=== PATIENT | female | born 2000 | race Caucasian/White ===

== ENCOUNTER 2021-10-19 22:07 | Observation (INO) | payer MEDICAID, SELFPAY ==
[2021-10-19 23:07] VITALS: BP 132/71; PULSE 93; RESP 17; TEMP 36.4; O2SAT 96; BMI 19.8
[2021-10-20] VITALS (18 sets, daily range): BP systolic 96–141; BP diastolic 51–99; PULSE 68–114; RESP 16–24; TEMP 36.6–37.2; O2SAT 18–100; BMI 19.8
--- NOTE | 2021-10-20 01:07 | USR_ITS ---
PROCEDURE INFORMATION: Exam: US First Trimester, Transabdominal and US , Transvaginal Exam date and time: 10/20/2021 2:22 AM Age: 21 years old Clinical indication: Other: Pelvic pain / vaginal bleeding; Gestational age or lmp: Unknown (patient had miscarriage 3 months prior); Additional info: Vag bleeding, pelvic pain TECHNIQUE: Imaging protocol: Real-time transabdominal obstetrical ultrasound of the maternal pelvis and a first trimester , less than 14 weeks 0 days, with image documentation. Transvaginal imaging was used for better evaluation of the fetus, adnexa, and/or cervix. COMPARISON: No relevant prior studies available. FINDINGS: Gestation: No intrauterine gestational sac is seen. Embryonic/ heart rate: N/A Extra-embryonic membranes/Placenta: N/A Amniotic fluid: N/A BIOMETRY: Gestational age (AUA): N/A MATERNAL: Uterus: The uterus measures 7.3 x 6.1 x 4.8 cm. The endometrium appears thickened with a multi-cystic appearance. Cervix: Unremarkable. Right ovary/adnexa: The right ovary measures 1.8 x 1.7 x 1.3 cm. Normal vascularity. No mass. Left ovary/adnexa: The left ovary measures 2.3 x 1.5 x 2.7 cm. Normal vascularity. No mass. Intraperitoneal space: No intraperitoneal free fluid. US/US OB <= 14 weeks fetus [id number] IMPRESSION: Thickened, multi-cystic appearance of the endometrium raises concern for a molar .
[2021-10-20] MEDS: sodium chloride 0.9% 1,000 ML 999 ML IV (02:16)
[2021-10-20 02:25] LABS: Basophils # 0.1 10^3/uL (0.0-0.1); Basophils % 0.5 %; Eosinophils # 0.1 10^3/uL (0.0-0.8); Eosinophils % 0.8 %; Hemoglobin 13.7 g/dL (11.5-15.3); Lymphocytes # 2.7 10^3/uL (1.5-6.5); Lymphocytes % 23.1 %; Mean Corpuscular HGB Conc 34.3 g/dL (30.0-36.0); Mean Corpuscular Hemoglobin 28.8 pg (28.0-34.0); Mean Corpuscular Volume 84.2 fl (81-99); Mean Platelet Volume 9.7 fL (7.4-10.4); Monocytes # 0.5 10^3/uL (0.2-0.9); Monocytes % 4.6 %; Neutrophils # 8.39 10^3/uL (1.8-8.0); Neutrophils % 70.7 %; Nucleated Red Blood Cells % 0 %; Platelet Count 407 10^3/cmm (130-400); Red Blood Count 4.75 10^6/uL (4.1-5.3); White Blood Count 11.8 10^3/uL (4.5-13.0)
[2021-10-20 02:55] LABS: Add Urine Microscopic? YES; Bilirubin Urine Neg (Negative); Blood Urine 2+ (Negative); Glucose Urine UA Norm (Normal); Ketones Urine 1+ (Negative); Leukocyte Esterase Urine Negative (Negative); Nitrate Urine Negative (Negative); Protein Urine Neg (Negative); Specific Gravity, Urine 1.015 (1.005-1.030); Urine Appearance Clear (CLEAR); Urine Color Yellow (Yellow); Urobilinogen Urine Norm (Negative); pH Urine 6 (5-7)
[2021-10-20 02:57] LABS: Add Urine Culture? No; Bacteria Urine 1+ /hpf; Mucus Urine 2+ /hpf; WBC Urine 0-4 /hpf (0-5)
[2021-10-20 02:58] LABS: Alanine Aminotransferase 101 U/L (0-33); Albumin Level 4.6 g/dL (3.5-5.2); Alkaline Phosphatase 96 IU/L (35-105); Aspartate Amino Transferase 52 U/L (0-32); Blood Urea Nitrogen 9 mg/dL (6-20); Calcium 9.8 mg/dL (8.5-10.5); Carbon Dioxide 22 mmol/L (22-29); Chloride 100 mmol/L (98-107); Globulin 3.4 g/dL (1.3-4.6); Glomerular Filtration Rate 203.5 mL/min (90-130); Glucose 85 mg/dL (65-115); Osmolality Calculated 280 mOsm/kg (285-295); Sodium 136 mmol/L (136-145); Total Bilirubin 0.2 mg/dL (0.15-1.2)
[2021-10-20 03:03] LABS: Anion Gap 18.3 (5-19); Potassium 4.3 mmol/L (3.5-5.1)
[2021-10-20] MEDS: lactated ringers 1,000 ML 100 ML IV (06:47)
--- NOTE | 2021-10-20 11:14 | PM.OBGYHP ---
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 Found to have a positive test of unknown LMP for this . She referred her last menstrual period was in June but she had a miscarriage in July and did not had a period since then. Ultrasound performed in the emergency room suggest molar with characteristic appearance and with quantitative hCG is 448535.00 mIU/mL. Past medical history significant for Jacob-Silver syndrome. Present Details : 2 Para: 0 Date of Last Menstrual Period: 06/29/21 Calculated Date of Delivery: 04/05/22 Gestational Age Based on Last Menstrual Period: 16 Review of Systems General: Reports: 10 or more systems reviewed and unremarkable except in HPI and below Const: Denies: fever(s) or chills ENMT: Denies: throat pain Card: Denies: chest pain Resp: Denies: dyspnea, productive cough or non-productive cough GI: Denies: abdominal pain : Reports: vaginal bleeding (spotting); Denies: flank pain, difficulty voiding, dysuria, urinary frequency, urinary urgency, urinary incontinence, genital lesions, genital pruritis, vaginal dryness, vaginal odor, vaginal discharge, dysmenorrhea, irregular period, metrorrhagia, amenorrhea, pelvic pain, prolapse symptoms or dyspareunia Medications/Allergies Home Medications Medication Instructions Recorded Confirmed Last Taken Type 1 tab PO DAILY 10/20/21 10/20/21 10/19/21 History Allergies Allergy/AdvReac Type Severity Reaction Status Date / Time No Known Allergies Allergy Verified 10/20/21 06:01 Vitals/I&O/Wt Last Vital Signs Temp 98.3 F 10/20/21 06:00 Pulse 87 10/20/21 06:00 Resp 16 10/20/21 06:00 BP 123/74 10/20/21 06:00 Pulse Ox 100 10/20/21 06:00 Weight last 48 hrs Weight 43.091 kg Weight 43.091 kg Physical Exam Const: COMMON NORMALS: no acute distress, average body habitus and patient oriented x3 GENERAL APPEARANCE: cooperative and well kempt HENMT: COMMON NORMALS: normocephalic and atraumatic HEAD & SCALP: normocephalic and atraumatic Neck/C-Spine: COMMON NORMALS: full ROM Chest: COMMONS NORMALS: normal inspection of the chest Resp: COMMON NORMALS: normal respiratory effort Cardio: COMMON NORMALS: regular rate and regular rhythm RATE: regular rate RHYTHM: regular rhythm GI: INSPECTION: Yes normal to inspection Neuro: COMMON NORMALS: patient oriented x3 Psych: APPEARANCE: Yes well kempt Data : 10/20/21 02:09 10/20/21 02:09 Other Labs: Laboratory Tests 10/20/21 02:09 Ser , Semi-Qnt 669250.00 A&P Assessment and plan (1) Molar with hydatidiform mole: Ms. Olmstead 21-year-old female G2, P0 diagnosed with molar . Due to the lack of presents most likely this is a complete mole. The patient and her partner were both counseled regarding molar and the treatment for surgical management with uterine evacuation and the recommended follow-up with serial quantitative hCG weekly until hCG is undetectable and contraception for at least 12 months. She was counseled regarding that the suction dilation and curettage and was informed of the risks and benefits of suction dilation and curettage. Risks included but were not limited to bleeding, infection, and injury to the vagina, bladder, or urethra, internal organs and incomplete resolution of symptoms. The patient expressed understanding of the risks involved, all questions were answered, and the patient consented to the procedure and signed informed consent. Status: Acute Attestations Medical Necessity Statement*: In my professional opinion per admitting diagnosis Coding Level of Care Code Acute Clinical Account Manager for [facility] Fwd Exam Detailed Diagnoses Molar with hydatidiform mole O01.9
--- NOTE | 2021-10-20 12:08 | PC.NURSE ---
Dr. Swann on the floor to transport patient to OR for D&C.
--- NOTE | 2021-10-20 12:29 | ANES.PREANE2 ---
Pre-Anesthetic Assessment Height/Weight: Height 1.47 m Weight 43.091 kg Temp Pulse Resp BP Pulse Ox 98.3 F 87 16 123/74 100 10/20/21 06:00 10/20/21 06:00 10/20/21 06:00 10/20/21 06:00 10/20/21 06:00 Operation Date: 10/20/21 13:40 Proposed Procedures p Dilation And Curettage w/ Suction(Not Applicable) - Rodriguez Dumont MD Familial anesthetic complications: None Was Beta Roque taken within 24 hours: N/A Was Clonidine taken within 24 hours: N/A Last intake: Intake Last Liquid Date 10/19/21 Last Liquid Time 19:00 Last Solid Date 10/19/21 Last Solid Time 15:00 Social No alcohol and No tobacco Exam alert, oriented x 3, clear to auscultation bilaterally and regular rate & rhythm Airway Submandibular: Other (< 2 finger breadths ) Cervical ROM: within normal limits Mallampati: Class I Dentition: full History/ROS No significant complaints Pulmonary None reported CV/HEM None reported molar Hepatic Elevated AST/ALT GI None reported Metabolic None reported Musc/skel None reported Neuropsych None reported Anesthetic Plan ASA status: 1 Anesthesia: Anesthesia Evaluation, General and MAC Other: We discussed risk and benefits of general anesthesia including PONV, sore throat (sometimes severe), corneal abrasion, positioning and peripheral nerve injuries, life threatening allergic reaction, post operative ICU admission requiring prolonged intubation, stroke, heart attack, , and rare incidences of recall. Patient consents to proceed with general anesthesia. I discussed with the patient risks, goals, and benefits of MAC and general anesthesia. We discussed spectrum of MAC anesthesia including conversion to general as well as possibility of recall of intraoperative stimuli including discomfort/pain. Patient agrees to proceed with MAC or general pending conversation with surgeon. Risk of > 500 ml blood loss (7ml/kg in children): No Medications/Allergies Home Medications Medication Instructions Recorded Confirmed Last Taken Type 1 tab PO DAILY 10/20/21 10/20/21 10/19/21 History Allergies Allergy/AdvReac Type Severity Reaction Status Date / Time No Known Allergies Allergy Verified 10/20/21 06:01 Current Medications Generic Name Dose Route Start Last Admin Trade Name Freq PRN Reason Stop Dose Admin Lactated Ringer's 1,000 mls @ 100 mls/hr 10/20/21 05:59 10/20/21 06:47 Lactated Ringers IV 100 mls/hr .Q10H VICTORIANO Administration PFSH Anesthesia Female Reproductive History Date of last menstrual period: 06/29/21 : 2 Data Anesthesia : 10/20/21 02:09 10/20/21 02:09 Short CBC 10/20/21 Range/Units 02:09 WBC 11.8 (4.5-13.0) 10^3/uL Hgb 13.7 (11.5-15.3) g/dL Hct 40.0 (37.0-47.0) % MCV 84.2 (81-99) fl Plt Count 407 H (130-400) 10^3/cmm Neut % (Auto) 70.7 % Neut # (Auto) 8.39 H (1.8-8.0) 10^3/uL BMP 10/20/21 02:09 Sodium 136 Potassium 4.3 Chloride 100 Carbon Dioxide 22 BUN 9 Creatinine 0.4 L Glucose 85 Calcium 9.8 Liver Function 10/20/21 Range/Units 02:09 Total Bilirubin 0.2 (0.15-1.2) mg/dL AST 52 H (0-32) U/L ALT 101 H (0-33) U/L Alkaline Phosphatase 96 (35-105) IU/L Albumin 4.6 (3.5-5.2) g/dL Urine 10/20/21 Range/Units 02:09 Urine Color Yellow (Yellow) Urine Appearance Clear (CLEAR) Urine pH 6 (5-7) Ur Specific [place] 1.015 (1.005-1.030) Urine Protein Neg (Negative) Urine Glucose (UA) Norm (Normal) Urine Ketones 1+ H (Negative) Urine Nitrate Negative (Negative) Urine Bilirubin Neg (Negative) Ur Leukocyte Esterase Negative (Negative) Urine RBC 5-10 H (0-2) /hpf Urine WBC 0-4 H (0-5) /hpf Blood Bank 10/20/21 02:09 Blood Type A Positive Rho(D) Type Positive Cardiac Studies: No Data to Display
[2021-10-20] MEDS: scopolamine 1.5 Patch 1 PATCH TRANSDERMA (12:50)
[2021-10-20] MEDS: sodium chloride 0.9% 1,000 ML 30 ML IV (12:50)
--- NOTE | 2021-10-20 14:06 | PM.OP ---
Operative Report Date of procedure: October 20, 2021 Pre-op diagnosis: Molar Post-op diagnosis: Same as above Post-op findings: Products of conception Procedure done: Suction dilation and curettage Specimens removed/disposition: Molar /products of conception Surgeon: Rodriguez Dumont MD Estimated blood loss (mL): 100 IV fluids (mL): 500 Findings: Molar Procedure: After informed consent, the patient was taken to the Operating Room where general anesthesia was administered. The patient was examined under anesthesia and found to have a normal uterus with normal adnexa. She was placed in the dorsal lithotomy position and prepped and draped in sterile fashion. A sterile weighted speculum was placed in the patient?s vagina. A single-tooth tenaculum was then applied to the cervix. The uterus was then gently sounded to 10 cm and a 9 mm suction curette was advanced gently to the uterine fundus and product of conception emptied. A sharp curettage was then performed until a gritty texture was noted. There was minimal bleeding noted and the tenaculum was removed with good hemostasis noted. The patient tolerated the procedure well. The patient was taken to the recovery area in stable condition.
[2021-10-20] MEDS: fentaNYL 50 mcg/mL INJ 2mL IVP (14:24)
--- NOTE | 2021-10-20 14:29 | SUR.PHASEI ---
1411 PT TO PACU AWAKE ALERT TALKATIVE, ABDOMEN SOFT HUAGN PAD D/I IV TO LT AC #20 WITH NS 250ML WITH 20 UNITS OF PITOCIN TO IV BAG, INFUSING AT MOD RATE PER GRAVITY. ID BRACELETS TO LT WRIST, PT ID'D WITH 2 IDENTIFIERS. MONITOR SR WITH NO ECTOPY, SATS 99% ON RA , RESPIRATIONS EVEN AND UNLABORED. 1424 PT GIVE FENTANYLY FOR PAIN OF 8/10 WARM BLANKETS TO ABDOMEN X 2 FOR COMFORT WELL. VSS MONITOR UNCHANGED HUANG PAD D/I
--- NOTE | 2021-10-20 15:10 | SUR.PHASEI ---
PT TO OB 12 PT AWAKE ALERT IV WITH PITOCIN IN FUSED NOW, PT MOVES SELF TO BED, PT TO BEDSIDE, PT TALKATIVE WITH STAFF ASKING FOR SOMETHING TO EAT, VSS.
[2021-10-20] MEDS: ketorolac 30 mg/mL INJ IVP ×2 (16:21→21:26)
--- NOTE | 2021-10-20 17:41 | W.ED.FEMALGU ---
HPI - Female Genitourinary General: Chief complaint: Vaginal Bleeding Stated complaint: Preg, not sure how many weeks, bleeding, cramping Time Seen by Provider: 10/20/21 03:36 Source: patient and family History of Present Illness: 21-year-old female, who believes she is a G3, more likely . Gestation is unknown, she had a miscarriage in July, and has not had a normal period since that time. She has tested positive for at home. She has not had any care. She presents with cramping and bleeding that started earlier in the evening. She passed some clots into the toilet, this is now slowing. She denies any fever. She denies significant abdominal pain or vomiting. MD elicited complaint: vaginal bleeding Onset (ago): hour(s) Location of symptoms: pelvis Severity: moderate Female Urogenital Radiation: Non-Radiating Quality of pain: cramping Consistency: intermittent Vaginal discharge: white Vaginal bleeding: moderate Exacerbating factors: none Relieving factors: none Associated symptoms: Reports abdominal pain (Mild) and nausea; Deny short of breath, fevers/chills, headache(s) or rash Treatment prior to arrival: none Sexual activity: Yes Patient : Yes Possible : at home test positive Date of Last Menstrual Period: 06/29/21 Related Data: : 2 Review of Systems Const: Denies: fever(s) or chills ENMT: Denies: throat pain Card: Denies: chest pain Resp: Denies: dyspnea, productive cough or non-productive cough GI: Reports: abdominal pain (Mild) and nausea; Denies: vomiting : Denies: flank pain or difficulty voiding Neuro: Denies: headache(s) [facility] Female Reproductive History: Date of last menstrual period: 06/29/21 : 2 Physical Exam Const: GENERAL APPEARANCE: cooperative NUTRITIONAL APPEARANCE: thin HENMT: COMMON NORMALS: normocephalic, atraumatic and Normal external nose present HEAD & SCALP: normocephalic and atraumatic NOSE: Normal external nose present Eye: COMMON NORMALS: Equal, round and reactive pupils present and EOMs intact bilaterally PUPIL: Yes Equal, round and reactive pupils present Neck/C-Spine: GENERAL: Yes trachea midline Chest: CHEST: Yes Symmetrical chest wall rise Resp: COMMON NORMALS: normal respiratory effort, No retractions, No use of accessory muscles and clear to auscultation bilaterally AUSCULTATION: clear to auscultation bilaterally Cardio: COMMON NORMALS: regular rate and regular rhythm RATE: regular rate RHYTHM: regular rhythm GI: COMMON NORMALS: Normal to inspection, nondistended, normoactive bowel sounds present PALPATION: Yes Tenderness to palpation present (GI) (Suprapubic) : COMMON NORMALS: Yes no CVA tenderness BLADDER/KIDNEY EXAM: Yes no CVA tenderness Back/Pelvis: COMMON NORMALS: no CVA tenderness Extremity: COMMON NORMALS: no pedal edema Neuro: TAMARA COMA SCALE: document GCS findings [place] coma scale eye opening: Spontaneous [place] coma scale verbal response: Orientated Tamara coma scale motor response: Obey commands Tamara coma scale total score: 15 Psych: COMMON NORMALS: mental status grossly normal Course Vital Signs: Vital signs: Vital Signs Temperature 98.2 F 10/20/21 14:35 Pulse Rate 90 10/20/21 14:35 Respiratory Rate 24 H 10/20/21 14:35 Blood Pressure 113/64 10/20/21 14:35 Pulse Oximetry 100 10/20/21 14:35 MDM - Female Medical Decision Making Vitals are normal. White blood cell count 11.8. BMP is normal. Her quantitative serum is 147,000. Pelvic ultrasound reveals cystic appearance of the endometrium concerning for hydatidiform mole. Gynecology consulted from the ER. Recommendations are admission, IV fluid, n.p.o., and evaluation for potential surgery later today. Lab Data : 10/20/21 02:09 10/20/21 02:09 Radiology Impressions Ultrasound 10/20/21 01:07 IMPRESSION: Thickened, multi-cystic appearance of the endometrium raises concern for a molar . Laboratory Results WBC 11.8 10^3/uL (4.5-13.0) 10/20/21 02:09 RBC 4.75 10^6/uL (4.1-5.3) 10/20/21 02:09 Hgb 13.7 g/dL (11.5-15.3) 10/20/21 02:09 Hct 40.0 % (37.0-47.0) 10/20/21 02:09 MCV 84.2 fl (81-99) 10/20/21 02:09 MCH 28.8 pg (28.0-34.0) 10/20/21 02:09 MCHC 34.3 g/dL (30.0-36.0) 10/20/21 02:09 RDW 13.0 % (12.1-15.1) 10/20/21 02:09 Plt Count 407 10^3/cmm (130-400) H 10/20/21 02:09 MPV 9.7 fL (7.4-10.4) 10/20/21 02:09 Neut % (Auto) 70.7 % 10/20/21 02:09 Lymph % (Auto) 23.1 % 10/20/21 02:09 [place] % (Auto) 4.6 % 10/20/21 02:09 Eos % (Auto) 0.8 % 10/20/21 02:09 Baso % (Auto) 0.5 % 10/20/21 02:09 Neut # (Auto) 8.39 10^3/uL (1.8-8.0) H 10/20/21 02:09 Lymph # (Auto) 2.7 10^3/uL (1.5-6.5) 10/20/21 02:09 [place] # (Auto) 0.5 10^3/uL (0.2-0.9) 10/20/21 02:09 Eos # (Auto) 0.1 10^3/uL (0.0-0.8) 10/20/21 02:09 Baso # (Auto) 0.1 10^3/uL (0.0-0.1) 10/20/21 02:09 Nucleated RBC % (auto) 0 % 10/20/21 02:09 Nucleated RBCs # 0.0 /100WBC 10/20/21 02:09 Sodium 136 mmol/L (136-145) 10/20/21 02:09 Potassium 4.3 mmol/L (3.5-5.1) 10/20/21 02:09 Chloride 100 mmol/L (98-107) 10/20/21 02:09 Carbon Dioxide 22 mmol/L (22-29) 10/20/21 02:09 Anion Gap 18.3 (5-19) 10/20/21 02:09 BUN 9 mg/dL (6-20) 10/20/21 02:09 Creatinine 0.4 mg/dL (0.5-0.9) L 10/20/21 02:09 GFR Calculation 203.5 mL/min (90-130) H 10/20/21 02:09 Glucose 85 mg/dL (65-115) 10/20/21 02:09 Calculated Osmolality 280 mOsm/kg (285-295) L 10/20/21 02:09 Calcium 9.8 mg/dL (8.5-10.5) 10/20/21 02:09 Total Bilirubin 0.2 mg/dL (0.15-1.2) 10/20/21 02:09 AST 52 U/L (0-32) H 10/20/21 02:09 ALT 101 U/L (0-33) H 10/20/21 02:09 Alkaline Phosphatase 96 IU/L (35-105) 10/20/21 02:09 Total Protein 8.0 g/dL (6.6-8.7) 10/20/21 02:09 Albumin 4.6 g/dL (3.5-5.2) 10/20/21 02:09 Globulin 3.4 g/dL (1.3-4.6) 10/20/21 02:09 Ser , Semi-Qnt 387010.00 mIU/mL 10/20/21 02:09 Urine Color Yellow (Yellow) 10/20/21 02:09 Urine Appearance Clear (CLEAR) 10/20/21 02:09 Urine pH 6 (5-7) 10/20/21 02:09 Ur Specific [place] 1.015 (1.005-1.030) 10/20/21 02:09 Urine Protein Neg (Negative) 10/20/21 02:09 Urine Glucose (UA) Norm (Normal) 10/20/21 02:09 Urine Ketones 1+ (Negative) H 10/20/21 02:09 Urine Blood 2+ (Negative) H 10/20/21 02:09 Urine Nitrate Negative (Negative) 10/20/21 02:09 Urine Bilirubin Neg (Negative) 10/20/21 02:09 Urine Urobilinogen Norm mg/dL (Negative) 10/20/21 02:09 Ur Leukocyte Esterase Negative (Negative) 10/20/21 02:09 Urine RBC 5-10 /hpf (0-2) H 10/20/21 02:09 Urine WBC 0-4 /hpf (0-5) H 10/20/21 02:09 Ur Squamous Epith Cells 5-10 /hpf (0-5) H 10/20/21 02:09 Amorphous Sediment Not Reportable 10/20/21 02:09 Urine Bacteria 1+ /hpf (NONE) H 10/20/21 02:09 Urine Mucus 2+ /hpf 10/20/21 02:09 Blood Type A Positive 10/20/21 02:09 Rho(D) Type Positive 10/20/21 02:09 Discharge Plan Discharge Patient Disposition: Admitted As Inpatient Admit Provider: Rodriguez Dumont Clinical Impression: Molar with hydatidiform mole Condition: Stable Coding Level of Care Code ED Bander Hand for Chg Fwd Exam Comprehensive
[2021-10-20] MEDS: docusate sodium 100 mg Capsule PO (19:18)
[2021-10-20] MEDS: HYDROcodone-acetaminophen 5-325 mg Tablet PO (19:18)
[2021-10-21 02:00] VITALS: BP 101/61; PULSE 61; RESP 18; TEMP 36.7
[2021-10-21] MEDS: ketorolac 30 mg/mL INJ IVP (03:20)
[2021-10-21 05:27] LABS: Hematocrit 31.3 % (37.0-47.0); Hemoglobin 10.4 g/dL (11.5-15.3); Mean Corpuscular HGB Conc 33.2 g/dL (30.0-36.0); Mean Corpuscular Volume 87.2 fl (81-99); Mean Platelet Volume 10.1 fL (7.4-10.4); Platelet Count 314 10^3/cmm (130-400); Red Blood Count 3.59 10^6/uL (4.1-5.3); Red Cell Distribution Width 13.2 % (12.1-15.1)
[2021-10-21] MEDS: prenatal vitamin Capsule 1 CAP PO (09:45)
[2021-10-21] MEDS: docusate sodium 100 mg Capsule PO (09:45)
[2021-10-21] MEDS: ibuprofen 800 mg tablet PO (09:45)
[2021-10-21 10:45] VITALS: BP 101/47; PULSE 71; RESP 16; TEMP 36.8
--- NOTE | 2021-10-21 11:00 | PM.OBGYDC ---
Discharge Providers CONSTRUCTION SALES REPRESENTATIVE Date of Admission: 10/20/21 06:00 Date of Discharge: 10/21/21 Attending Provider at Admission: Rodriguez Dumont MD Attending Provider at Discharge: Rodriguez Dumont MD Diagnoses at Discharge Discharge Diagnosis (1) Molar with hydatidiform mole: Status: Acute Reason for Visit Reason for Visit: Preg, not sure how many weeks, bleeding, cramping Hospital Course Hospital Course Tristin Olmstead is a 21 year old female came to the emergency room with vaginal bleeding. Found to have a positive test of unknown LMP for this . She referred her last menstrual period was in June but she had a miscarriage in July and did not had a period since then. Ultrasound performed in the emergency room suggest molar with characteristic appearance and with quantitative hCG is 228445.00 mIU/mL. Estimated estimated gestational age approximately 6 to 8 weeks. Past medical history significant for Jacob-Silver syndrome. She was admitted for suction dilation and curettage which were performed without complications. Overnight observation was uneventful. She is afebrile hemodynamically stable. Tolerating diet well. Ambulating without difficulty. Patient was counseled regarding follow-up with serial quantitative hCG weekly and highly encouragement of control for at least 12 months. He was also advised to follow-up next week at the clinic. Physical Exam Narrative: GA; alert and oriented x 3 HEENT: normal Breasts: Within normal limits Lungs; clear to auscultation Heart: regular rhythm, no murmurs. Abd: Appropriately tender. BS+. Uterine fundus below umbilicus. No Fundal Tenderness. Perineum: Scant bleeding Extremities: no edema, no cyanosis, no tenderness. Discharge Data Studies Completed and Pending Completed Studies During Hospitalization Category Date Time Status US OB <= 14 weeks fetus [id number] Stat Ultrasound 10/20/21 01:07 Completed Pending at discharge Category Date Time Status HCG Quantitative Stat Lab 10/21/21 10:25 Ordered Pathology: Surgical [PTH] Routine Pth 10/20/21 14:14 Ordered Radiology Impressions Ultrasound 10/20/21 01:07 IMPRESSION: Thickened, multi-cystic appearance of the endometrium raises concern for a molar . Laboratory Results WBC 12.0 10^3/uL (4.5-13.0) 10/21/21 05:15 RBC 3.59 10^6/uL (4.1-5.3) L 06/05/22 05:15 Hgb 10.4 g/dL (11.5-15.3) L 10/21/21 05:15 Hct 31.3 % (37.0-47.0) L 10/21/21 05:15 MCV 87.2 fl (81-99) 10/21/21 05:15 MCH 29.0 pg (28.0-34.0) 10/21/21 05:15 MCHC 33.2 g/dL (30.0-36.0) 10/21/21 05:15 RDW 13.2 % (12.1-15.1) 10/21/21 05:15 Plt Count 314 10^3/cmm (130-400) 10/21/21 05:15 MPV 10.1 fL (7.4-10.4) 10/21/21 05:15 Neut % (Auto) 70.7 % 10/20/21 02:09 Lymph % (Auto) 23.1 % 10/20/21 02:09 [place] % (Auto) 4.6 % 10/20/21 02:09 Eos % (Auto) 0.8 % 10/20/21 02:09 Baso % (Auto) 0.5 % 10/20/21 02:09 Neut # (Auto) 8.39 10^3/uL (1.8-8.0) H 10/20/21 02:09 Lymph # (Auto) 2.7 10^3/uL (1.5-6.5) 10/20/21 02:09 [place] # (Auto) 0.5 10^3/uL (0.2-0.9) 10/20/21 02:09 Eos # (Auto) 0.1 10^3/uL (0.0-0.8) 10/20/21 02:09 Baso # (Auto) 0.1 10^3/uL (0.0-0.1) 10/20/21 02:09 Nucleated RBC % (auto) 0 % 10/20/21 02:09 Nucleated RBCs # 0.0 /100WBC 10/20/21 02:09 Sodium 136 mmol/L (136-145) 10/20/21 02:09 Potassium 4.3 mmol/L (3.5-5.1) 10/20/21 02:09 Chloride 100 mmol/L (98-107) 10/20/21 02:09 Carbon Dioxide 22 mmol/L (22-29) 10/20/21 02:09 Anion Gap 18.3 (5-19) 10/20/21 02:09 BUN 9 mg/dL (6-20) 10/20/21 02:09 Creatinine 0.4 mg/dL (0.5-0.9) L 10/20/21 02:09 GFR Calculation 203.5 mL/min (90-130) H 10/20/21 02:09 Glucose 85 mg/dL (65-115) 10/20/21 02:09 Calculated Osmolality 280 mOsm/kg (285-295) L 10/20/21 02:09 Calcium 9.8 mg/dL (8.5-10.5) 10/20/21 02:09 Total Bilirubin 0.2 mg/dL (0.15-1.2) 10/20/21 02:09 AST 52 U/L (0-32) H 10/20/21 02:09 ALT 101 U/L (0-33) H 10/20/21 02:09 Alkaline Phosphatase 96 IU/L (35-105) 10/20/21 02:09 Total Protein 8.0 g/dL (6.6-8.7) 10/20/21 02:09 Albumin 4.6 g/dL (3.5-5.2) 10/20/21 02:09 Globulin 3.4 g/dL (1.3-4.6) 10/20/21 02:09 Ser , Semi-Qnt 125789.00 mIU/mL 10/20/21 02:09 Urine Color Yellow (Yellow) 10/20/21 02:09 Urine Appearance Clear (CLEAR) 10/20/21 02:09 Urine pH 6 (5-7) 10/20/21 02:09 Ur Specific [place] 1.015 (1.005-1.030) 10/20/21 02:09 Urine Protein Neg (Negative) 10/20/21 02:09 Urine Glucose (UA) Norm (Normal) 10/20/21 02:09 Urine Ketones 1+ (Negative) H 10/20/21 02:09 Urine Blood 2+ (Negative) H 10/20/21 02:09 Urine Nitrate Negative (Negative) 10/20/21 02:09 Urine Bilirubin Neg (Negative) 10/20/21 02:09 Urine Urobilinogen Norm mg/dL (Negative) 10/20/21 02:09 Ur Leukocyte Esterase Negative (Negative) 10/20/21 02:09 Urine RBC 5-10 /hpf (0-2) H 10/20/21 02:09 Urine WBC 0-4 /hpf (0-5) H 10/20/21 02:09 Ur Squamous Epith Cells 5-10 /hpf (0-5) H 10/20/21 02:09 Amorphous Sediment Not Reportable 10/20/21 02:09 Urine Bacteria 1+ /hpf (NONE) H 10/20/21 02:09 Urine Mucus 2+ /hpf 10/20/21 02:09 Blood Type A Positive 10/20/21 02:09 Rho(D) Type Positive 10/20/21 02:09 Vitals Last Vital Signs Temp 98.1 F 10/21/21 02:00 Pulse 61 10/21/21 02:00 Resp 18 10/21/21 02:00 BP 101/61 10/21/21 02:00 Pulse Ox 97 10/20/21 18:00 Discharge Plan Discharge Patient Disposition: Home Condition: Stable Prescriptions: New ferrous sulfate [Iron (ferrous sulfate)] 325 mg (65 mg iron) tablet 325 mg PO BID Qty: 60 0RF ibuprofen 800 mg tablet 800 mg PO TID PRN (Reason: pain) Qty: 60 0RF acetaminophen 325 mg capsule 325 mg PO Q4H PRN (Reason: fever or pain) Qty: 60 0RF docusate sodium [Colace] 100 mg capsule 100 mg PO BID Qty: 60 0RF Continued 1 tab PO DAILY 0RF Discharge Orders: Discharge Order (Routine); Ordered 10/21/21 Ordered By: Rodriguez Dumont Referrals: Rodriguez Dumont MD [Physician] - 1 week (Serial quantitative hCG weekly until negative) Discharge Diet: Usual diet Discharge Activity: Limit activity as instructed Patient Instructions: Opioid Safety, Dilation and Curettage (GEN), Complete Hydatidiform Mole (GEN) Activity Restrictions/Additional Instructions: 1. Please call [facility] on next working day to make your post-operative appointment and quantitative hCG monitoring in 1 week. 2. Please stay home until you come back to the clinic on first post-operative check up. 3. Please follow instructions on your medications CAREFULLY. 4. If you have abdominal incision, do not cover it unless dressing is necessary because of drainage. OK to shower, but avoid bath. Leave steri-strips until they fall off. If they are still on one week after surgery, you may remove them. 5. If you had vaginal surgery or vaginal repair, Dr. Dumont may instruct you to take SITZ bath. 6. Yellow, blood tinged odorous vaginal discharge is usually normal after hysterectomy or vaginal surgeries. 7. No sexual intercourse, tampons, or douches until you are completely released from the post-operative care. 8. Avoid constipation by eating right and maybe using some Metamucil or Milk of Magnesia. 9. All prescription refills are given during the working hours. Please do no wait till it runs out. Call the clinic at [phone] before your medication runs out. The clinic will get in touch with your doctor to prescribe medications if necessary. 10. Please remain within 40 mile radius from our hospital because emergencies do happen now and then during the post-operative period. 11. If you have stairs at home, take one step at a time slowly and minimize the number of trips. It helps to stay in one floor for the next few days. No lifting except what you can lift by one hand until you are released from the post-operative care. 12. Driving is discouraged until you are well healed. It may be 3-4 weeks before you feel strong enough to drive. You should be able to turn and look through the rear window without pain and you should be able to push the brake pedal very hard without pain before you drive. No fast rules, but SAFETY should be your primary concern. DO NOT drive if you are on sedating medications such as narcotics. 13. Call the clinic (during working hours) to make urgent appointment or go to the Emergency room, if any of the following occurs: i. Vaginal bleeding becomes heavy, more than a period. ii. Incision becomes red and sore, or drains pus. iii. Your temperature is over 100.4 or you have chill. iv. IV site becomes red and swollen (a little ``knot?? is usually OK) v. Persistent nausea and vomiting vi. Persistent constipation or diarrhea vii. Rash or allergic reaction to medications. Discharge Attestations CONSTRUCTION SALES REPRESENTATIVE Time Spent in Discharge Care*: greater than 30 min Coding Level of Care Code Acute Service Delivery Manager for Chg Fwd Diagnoses Molar with hydatidiform mole O01.9
--- NOTE | 2021-10-22 08:29 | ANE.PACU2 ---
Inpatient post-anesthesia follow up: Airway intact: Yes Vital signs: Temperature 98.2 F Pulse Rate 71 Respiratory Rate 16 Blood Pressure 101/47 Pulse Oximetry 97 Oxygen Delivery Me thod Room Air Oxygen Flow Rate Fraction of Inspir ed Oxygen Hydration adequate: Yes Nausea and vomiting: No Pain level: 1 Mental status: Baseline
== END 2021-10-21 11:55 | disposition home or self-care (01) ==
LOC: ER 10-20 05:12 → OBGYN 10-20 05:27
PROVIDERS: Admitting Provider Obstetrics & Gynecology; Emergency Provider Emergency Medicine; Visit Provider Obstetrics & Gynecology
PROC: (CPT 59870; principal; 2021-10-20 13:30)
DX: O01.9 Hydatidiform mole, unspecified (principal)
CPT/HCPCS: 59870; 36415; 76801; 80053; 81001; 81229; 84702; 85025; 85027; 86900; 88305; G0378; J0330; J1100; J1885; J2405; J2704; J3010; J3490; J7030

== ENCOUNTER → 2021-11-20 15:32 | Outpatient (BNVA) | payer MEDICAID, SELFPAY | PROVIDERS: Visit Provider Obstetrics & Gynecology | DX: O01.9 Hydatidiform mole, unspecified (principal) | CPT/HCPCS: 84702 ==

== ENCOUNTER → 2021-11-23 11:44 | Outpatient (BNVA) | payer MEDICAID, SELFPAY | PROVIDERS: Visit Provider Obstetrics & Gynecology | DX: Z30.017 Encounter for initial prescription of implantable subdermal contraceptive (principal) | CPT/HCPCS: 81025 ==

== ENCOUNTER → 2021-11-29 11:28 | Outpatient (BNVA) | payer MEDICAID, SELFPAY | PROVIDERS: Visit Provider Obstetrics & Gynecology | DX: O01.9 Hydatidiform mole, unspecified (principal) | CPT/HCPCS: 84702 ==

== ENCOUNTER → 2021-12-06 13:08 | Outpatient (BNVA) | payer MEDICAID, SELFPAY | PROVIDERS: Visit Provider Obstetrics & Gynecology | DX: O01.9 Hydatidiform mole, unspecified (principal) | CPT/HCPCS: 84702 ==

== ENCOUNTER → 2021-12-07 14:47 | Day surgery (SDC) | payer MEDICAID, SELFPAY ==
[2021-12-07 15:03] VITALS: BP 118/66; PULSE 101; RESP 18; TEMP 37; O2SAT 98
== END ==
PROVIDERS: Visit Provider Obstetrics & Gynecology
DX: O02.0 Blighted ovum and nonhydatidiform mole (principal)
CPT/HCPCS: 84702; 96372; J9260

== ENCOUNTER → 2022-02-26 16:24 | Outpatient (BNVA) | payer MEDICAID, SELFPAY | PROVIDERS: Visit Provider Obstetrics & Gynecology | DX: O01.9 Hydatidiform mole, unspecified (principal) | CPT/HCPCS: 84702 ==

== ENCOUNTER → 2022-03-05 14:39 | Outpatient (BNVA) | payer MEDICAID, SELFPAY | PROVIDERS: Visit Provider Obstetrics & Gynecology | DX: O01.9 Hydatidiform mole, unspecified (principal) | CPT/HCPCS: 84702 ==

== ENCOUNTER → 2022-03-12 15:35 | Outpatient (BNVA) | payer MEDICAID, SELFPAY | PROVIDERS: Visit Provider Obstetrics & Gynecology | DX: Z32.00 Encounter for pregnancy test, result unknown (principal) | CPT/HCPCS: 84702 ==

== ENCOUNTER → 2022-04-02 14:15 | Outpatient (BNVA) | payer MEDICAID, SELFPAY | PROVIDERS: Visit Provider Obstetrics & Gynecology | DX: O01.9 Hydatidiform mole, unspecified (principal) | CPT/HCPCS: 84702 ==

== ENCOUNTER → 2022-04-22 12:09 | Outpatient (BNVA) | payer MEDICAID, SELFPAY | PROVIDERS: Visit Provider Obstetrics & Gynecology | DX: O03.9 Complete or unspecified spontaneous abortion without complication (principal) | CPT/HCPCS: 84702 ==

== ENCOUNTER → 2022-04-30 09:45 | Outpatient (BNVA) | payer MEDICAID, SELFPAY | PROVIDERS: Visit Provider Obstetrics & Gynecology | DX: Z87.59 Personal history of other complications of pregnancy, childbirth and the puerperium (principal); O03.9 Complete or unspecified spontaneous abortion without complication | CPT/HCPCS: 84702 ==

== ENCOUNTER → 2022-05-08 10:40 | Outpatient (BNVA) | payer MEDICAID, SELFPAY | PROVIDERS: Visit Provider Obstetrics & Gynecology | DX: O03.9 Complete or unspecified spontaneous abortion without complication (principal) | CPT/HCPCS: 84702 ==

== ENCOUNTER → 2022-05-14 12:00 | Outpatient (BNVA) | payer MEDICAID, SELFPAY | PROVIDERS: Visit Provider Obstetrics & Gynecology | DX: Z12.4 Encounter for screening for malignant neoplasm of cervix (principal) | CPT/HCPCS: 87491; 87591; 87661; 88175 ==

== ENCOUNTER → 2022-06-04 10:32 | Outpatient (BNVA) | payer MEDICAID, SELFPAY | PROVIDERS: Visit Provider Obstetrics & Gynecology | DX: R10.2 Pelvic and perineal pain (principal) | CPT/HCPCS: 76830 ==

== ENCOUNTER → 2023-03-27 11:10 | Outpatient (BNVA) | payer MEDICAID, SELFPAY | PROVIDERS: Visit Provider Obstetrics & Gynecology | DX: R10.2 Pelvic and perineal pain (principal) | CPT/HCPCS: 76830; 84702 ==

== ENCOUNTER → 2023-11-10 15:16 | Outpatient (BNVA) | payer MEDICAID, SELFPAY | PROVIDERS: Visit Provider Obstetrics & Gynecology | DX: N92.6 Irregular menstruation, unspecified (principal); Z87.59 Personal history of other complications of pregnancy, childbirth and the puerperium; O01.9 Hydatidiform mole, unspecified | CPT/HCPCS: 81025; 84702 ==

== ENCOUNTER → 2023-11-26 07:52 | Outpatient (BNVA) | payer MEDICAID, SELFPAY | PROVIDERS: Visit Provider Obstetrics & Gynecology | DX: N92.6 Irregular menstruation, unspecified (principal) | CPT/HCPCS: 76830 ==

== ENCOUNTER → 2023-12-04 15:54 | Outpatient (BNVA) | payer MEDICAID, SELFPAY | PROVIDERS: Visit Provider Obstetrics & Gynecology | DX: N83.201 Unspecified ovarian cyst, right side (principal); Z87.59 Personal history of other complications of pregnancy, childbirth and the puerperium | CPT/HCPCS: 81500; 84702 ==

== ENCOUNTER 2023-12-17 07:52 | Outpatient (CLI) | payer MEDICAID, SELFPAY ==
--- NOTE | 2023-12-17 08:00 | MR_ITS ---
WS: [id number] MRI BRAIN WITH AND WITHOUT CONTRAST HISTORY: Z87.59 - Personal history of other complications of ..., History of molar . COMPARISON: None available. TECHNIQUE: Multiplanar imaging performed through the brain with MultiHance 9 ml's IV. No acute infarcts are seen. Kwon-white matter differentiation is well preserved. No susceptibility artifacts or prior lacunar infarcts. Ventricles and extra-axial spaces are normal. Clivus and pituitary gland are normal. Small arachnoid cyst in the posterior fossa. The vermis is noted and intact. No midline shift. No Chi cassy malformation. Postcontrast images are negative for masses or vascular malformations. Dural venous sinuses are normal. Paranasal sinuses: Marked mucoperiosteal thickening in the maxillary sinuses, RIGHT greater than LEFT . No air-fluid levels. Smaller amount of mucoperiosteal thickening in the frontal and ethmoid air mckinley ls. Mastoid air cells: Normal. Calvarium and scalp: Normal. MR/MR head wo/w con [id number] IMPRESSION: 1. No diffusion abnormalities. No acute infarct. 2. No prior infarct or ischemic event. 3. No enhancing masses or metastatic disease. 4. Bilateral maxillary sinus disease.
--- NOTE | 2023-12-17 08:45 | MR_ITS ---
WS: [id number] MRI THORACIC SPINE with and without contrast HISTORY: Z87.59 - Personal history of other complications of , history of molar . COMPARISON: None available. TECHNIQUE: Multiplanar sequences are performed in sagittal and axial planes. Postcontrast imaging Mul tiHance 9 mL. Normal thoracic alignment. The disc spaces and vertebral body heights are normal. No cord enlargement or atrophy. No areas of abnormal enhancement. No disc protrusions or stenosis. The adjacent paraspin al soft tissues are normal. MR/MR thoracic spine wo/w [id number] IMPRESSION: Negative MRI thoracic spine.
[2023-12-17] MEDS: gadobenate dimeglumine 20 mL vial 9 ML IV (09:28)
== END 2023-12-17 07:53 | disposition home or self-care (01) ==
LOC: RAD 07:52
PROVIDERS: Visit Provider Obstetrics & Gynecology
DX: Z87.59 Personal history of other complications of pregnancy, childbirth and the puerperium (principal); J32.0 Chronic maxillary sinusitis
CPT/HCPCS: 70553; 72157; A9577

== ENCOUNTER 2023-12-26 06:00 | Outpatient (CLI) | payer BC, MEDICAID, SELFPAY | END 2023-12-26 06:01 | disposition home or self-care (01) | LOC: RAD 01-25 15:35 | PROVIDERS: Visit Provider Obstetrics & Gynecology | DX: N83.201 Unspecified ovarian cyst, right side (principal) | CPT/HCPCS: 84702 ==

== ENCOUNTER → 2024-01-07 08:27 | Outpatient (BNVA) | payer BC, SELFPAY | PROVIDERS: Visit Provider Obstetrics & Gynecology | DX: N83.202 Unspecified ovarian cyst, left side (principal) | CPT/HCPCS: 76830 ==

== ENCOUNTER 2024-01-14 07:59 | Outpatient (CLI) | payer BC, MEDICAID, SELFPAY ==
--- NOTE | 2024-01-14 08:00 | MR_ITS ---
WS: [id number] MRI PELVIS WITH AND WITHOUT CONTRAST. COMPARISON: Pelvic ultrasound 01/07/2024. Multiplanar, multisequence imaging is performed with and without contrast. MultiHance 9 mL. History: History of molar . Elevated beta hCG. Normal appearance of the uterus. Uterus is anteverted. No fibroid. Endocervical region is normal. The endometrium is normal size measuring 7 mm. There is a very subtle area of signal change along the po sterior mid endometrium measuring 8 mm. On the postcontrast imaging there is mild hypervascularity. O n the T2 sequences there is a mixture of increased and decreased signal. Normal size RIGHT ovary with a few follicles. Ovary measures 2.7 x 1.6 x 1.6 cm. LEFT ovary is slight ly enlarged and has several small follicles and a hemorrhagic cyst. The entire complex measures 3.3 x 2.7 x 3.3 cm. No solid mass or abnormal enhancement. There is no free fluid. No adenopathy identifie d. Visualized urinary bladder is normal. MR/MR pelvis wo/w con [id number] IMPRESSION: 1. Very subtle area of signal change and enhancement involving the posterior m id endometrium at the junctional zone. Area of signal abnormality measures appr oximately 8 mm. There is increased early enhancement. Differential includes a s mall tiny fibroid at the junctional zone. This could be an area of viable troph oblastic tissue also. No abnormality was noted on the recent pelvic ultrasound in this location. 2. Normal size uterus. 3. LEFT ovary slightly enlarged with hemorrhagic cyst. No solid mass. 4. No residual molar gestation identified by MRI.
[2024-01-14] MEDS: gadobenate dimeglumine 20 mL vial 9 ML IV (09:13)
== END 2024-01-14 08:00 | disposition home or self-care (01) ==
LOC: RAD 07:59
PROVIDERS: Visit Provider Obstetrics & Gynecology
DX: Z87.59 Personal history of other complications of pregnancy, childbirth and the puerperium (principal); N85.4 Malposition of uterus; N83.202 Unspecified ovarian cyst, left side
CPT/HCPCS: 72197; A9577

== ENCOUNTER → 2025-02-16 13:32 | Outpatient (BNVA) | payer BC, MEDICAID, SELFPAY | PROVIDERS: Visit Provider Nurse Practitioner Women's Health | DX: Z34.90 Encounter for supervision of normal pregnancy, unspecified, unspecified trimester (principal) | CPT/HCPCS: 84702 ==

== ENCOUNTER → 2025-02-18 08:09 | Outpatient (BNVA) | payer BC, MEDICAID, SELFPAY | PROVIDERS: Visit Provider Nurse Practitioner Women's Health | DX: O20.0 Threatened abortion (principal) | CPT/HCPCS: 84702 ==

== ENCOUNTER 2025-02-20 00:20 | Emergency (ER) | payer BC, MEDICAID, SELFPAY ==
[2025-02-20 00:27] VITALS: BP 124/65; PULSE 83; RESP 16; TEMP 36.4; O2SAT 100; BMI 19.8
--- OUTSIDE RECORDS SUMMARY | 2025-02-20 00:39 | XMS_ITS | Clinical Summary ---
[facility] Address [address] [place] [address] Phone Care Team Providers Care Dairy Husbandry Teacher Name Role Phone Celso Pichardo MD Primary Care Provider [phone] Allergies No known active allergies Medications betamethasone dipropionate (DIPROSONE) 0.05 % Ointment Apply to affected area 2 times daily. 45 Gram 4 Active Additional Information Patient not taking.Reported on 11/16/2024 ondansetron (ZOFRAN) 4 mg Tablet take 1 tablet by mouth every 8 hours as needed for nausea 4 Active prochlorperazine maleate (COMPAZINE) 10 mg tablet take 1 tablet by mouth every 6 hours as needed for nausea 4 Active omeprazole (PriLOSEC) 40 mg Capsule, Delayed Release(E.C.) Take 1 Capsule by mouth daily. 5 Active traMADol (ULTRAM) 50 mg tablet TAKE 1 TABLET BY MOUTH 4 TIMES DAILY NEEDED FOR SEVERE PAIN 5 Active promethazine-dex tromethorphan (PHENERGAN-DM) 6.25-15 mg/5 mL syrupIndications :Upper respiratory tract infection, unspecified type Take 5 mL by mouth every 6 hours as needed for Cough. 120 mL 5 Active triamcinolone acetonide (KENALOG) 0.5 % CreamIndications :Rash and nonspecific skin eruption Apply to affected area 2 times daily. 30 Gram 5 Active Active Problems Problem Noted Date Diagnosed Date Vaginal bleeding in , first trimester 1 06/08/2022 Uterine cramping 04/08/2023 History of molar 09/03/2022 Jacob-Silver dwarfism 2001 Resolved Problems Problem Noted Date Diagnosed Date Resolved Date Bipolar disorder 09/03/2022 03/09/2024 Encounters Date Type Department Care Team Description 02/01/2025 External Device Data [facility] ABSTRACTION Provider, Abstract 01/18/2025 External Device Data [facility] ABSTRACTION Provider, Abstract 01/05/2025 External Device Data [facility] ABSTRACTION Provider, Abstract 12/01/2024 External Device Data [facility] ABSTRACTION Provider, Abstract from Last 3 Months Immunizations Immunization Administration Dates Next Due (RECOMBIVAX HB/ENGERIX-B)(0- 19 YRS) HEPATITIS B VACCINE 5 MCG/0.5 ML OR 10 MCG/0.5 ML PED OR ADOL 3 DOSE (PF), IM 03/22/2020 (VARIVAX)(12 MOS UP)VARICELL A VIRUS VACCINE (PF) 0.5 ML, SUB CUT 03/22/2020 INFLUENZA VACCINE QUADRIVALENT 6 MOS UP CELL BLADIMIR IVED IM 03/20/2020 INFLUENZA VACCINE TRIVALENT SPLIT VIRUS, (6 MOS UP), 0.5ML (PF), IM 03/02/2024 Family History Medical History Relation Name Comments Cancer Father Savannah Julio Tongue cancer High Cholesterol Father Savannah Julio Hypertension Father Savannah Julio Liver Disease Father Savannah Julio Respiratory Disease Father Savannah Julio COPD Cancer Maternal Grandmother Priscilla Ovalle Mantle Cell Lymphoma Heart Disease Maternal Grandmother Priscilla Ovalle High Cholesterol Maternal Grandmother Priscilla Ovalle Hypertension Maternal Grandmother Priscilla Ovalle Kidney Disease Maternal Grandmother Priscilla Ovalle Lung Cancer Paternal Grandfather Remington Julio Diabetes Paternal Grandmother Josiane Julio High Cholesterol Paternal Grandmother Josiane Hightowe r Hypertension Paternal Grandmother Josiane Julio Relation Name Status Comments Father Savannah Julio Maternal Grandmother Priscilla Ovalle Paternal Grandfather Remington Julio Paternal Grandmother Josiane Julio Social History Tobacco Use Types Packs/Day Years Used Date Smoking Tobacco: Never Passive Smoke Exposure: Yes Smokeless Tobacco: Never Tobacco Cessation:Counseling Given: No Alcohol Use Standard Drinks/Week Comments Not Currently 0 (1 standard drink = 0.6 oz pur e alcohol) Feeling Safe Answer Date Recorded Are you in a relationship wi th someone who hurts you emotionally and/or physically? No 06/22/2023 Comments No Sex and Gender Information Value Date Recorded Sex Assigned at Not on file Legal Sex Female 9:56 AM CDT Gender Identity Not on file Sexual Orientation Not on file Last Filed Vital Signs Vital Sign Reading Time Taken Comments Blood Pressure 111/65 11/16/2024 9:48 AM CDT Pulse 73 11/16/2024 9:48 AM CDT Temperature 36.8 C (98.2 F) 11/16/2024 9:48 AM CDT Respiratory Rate 16 11/16/2024 9:48 AM CDT Oxygen Saturation 100% 11/16/2024 9:48 AM CDT Inhaled Oxygen Concentration - - Weight 41.7 kg (92 lb) 11/16/2024 9:48 AM CDT Height 147.3 cm (4' 10 ) 11/16/2024 9:48 AM CDT Body Mass Index 19.23 11/16/2024 9:48 AM CDT Plan of Treatment Upcoming Encounters Date Type Department Care Team (Late st Contact Info) Description 03/11/2025 9:00 AM CDT Office Visit [address] [phone] Angela Reaves FNP [address] [phone] 03/17/2026 9:00 AM CDT Office Visit [address] [phone] Angela Reaves FNP [address] [phone] Health Maintenance Due Date Last Done Comments CHLAMYDIA SCREENING (ANNUAL) 11-24 YEARS 02/20/2012 HPV VACCINES (1 - 3-dose series) 02/20/2016 DTAP/TDAP/TD VACCINES (1 - Tdap) 02/20/2020 HEPATITIS B VACCINES (2 of 3 - 19+ 3-dose series) 04/19/2020 03/22/2020 HPV/Cotest (21-29) 2022 INFLUENZA VACCINE (#1) 2024 , 01/27/2023, 09/03/2022, Additional history exists Preventative Visit-Managed Medicaid 03/10/2025 03/09/2024, 09/03/2022, 03/17/2019 CERVICAL CANCER SCREENING 05/19/2025 PAP SMEAR 05/19/2025 05/19/2022 Insurance [employer] Care Teams Dairy Husbandry Teacher Relationship Specialty Start Date End Date Celso Pichardo MD [address] [place] [id number] PCP - General Family Practice 10/16/22
--- NOTE | 2025-02-20 00:53 | USR_ITS ---
PROCEDURE INFORMATION: Exam: US , Transvaginal Exam date and time: 02/20/2025 1:59 AM Age: 25 years old Clinical indication: Lmp or gestational age (in weeks): Based on lmp 5w1d; Antepartum complications; Bleeding; ; Prior surgery; Surgery date: 6+ months; Surgery type: Unsure of dates but patient says she has had a d&c; Additional info: 5wk preg bleeing LABS AND CLINICAL REPORTS: Last menstrual period start date: 01/15/2025 Gestational age (Established): 5 w 1 d Estimated due date (Established): 10/22/2025 TECHNIQUE: Imaging protocol: Real-time transvaginal obstetrical ultrasound of the maternal pelvis with image documentation. Transvaginal imaging was used for better evaluation of the fetus, adnexa, and/or cervix. COMPARISON: US transvaginal [id number] 01/07/2024 8:35 AM FINDINGS: Gestation: Likely small intrauterine gestational sac measuring 0.2 cm. BIOMETRY: Gestational age (AUA): Estimated gestational age by ultrasound 4 weeks and 6 days. MATERNAL: Uterus: Unremarkable. Right ovary/adnexa: Normal right ovary. Left ovary/adnexa: Normal left ovary. US/US OB transvaginal [id number] IMPRESSION: There is likely an intrauterine gestational sac which may represent an early of uncertain viability (4 weeks and 6 days). Recommend clinical and imaging follow-up.
--- NOTE | 2025-02-20 01:07 | W.ED.FEMALGU ---
HPI - Female Genitourinary General: Chief complaint: Abdominal Pain Stated complaint: abd pain r side Time Seen by Provider: 02/20/25 00:52 History of Present Illness: Patient is a 25-year-old female who presents with concern for possible miscarriage or ectopic . She reports being approximately 5 weeks based on her last menstrual period. The patient states she began experiencing vaginal bleeding approximately 2 hours prior to presentation. She describes the bleeding as brisk and has used one pad since onset. She endorses associated cramping and back pain. The patient reports having had two positive home tests and has had two blood draws at the women's clinic, with the most recent one on Friday confirming . She has an appointment scheduled with a nurse practitioner on the for follow-up care. The patient denies fever, nausea, or vomiting. Date of Last Menstrual Period: 01/15/25 Related Data Home Medications ?Medication ?Instructions ?Recorded ?Confirmed No Known Home Medications 12/04/23 01/09/24 Allergies Allergy/AdvReac Type Severity Reaction Status Date / Time No Known Allergies Allergy Verified 02/20/25 00:32 PFSH ED PFSH: Family History Grandmother Diabetes paternal Hyperlipidemia paternal Hypertension maternal and paternal Father Hypertension Denies family history of Colon cancer Ovarian cancer Clotting disorder Heart disease Breast cancer Anesthesia complication Bleeding disorder Uterine cancer Thyroid disease Stroke Social History Smoking and tobacco/nicotine status: never used tobacco/nicotine Female Reproductive History: Date of last menstrual period: 01/15/25 Physical Exam Const: COMMON NORMALS: no acute distress GENERAL APPEARANCE: cooperative; not ill appearing and not frail appearing HENMT: COMMON NORMALS: normocephalic, atraumatic and Normal external nose present HEAD & SCALP: normocephalic and atraumatic FACE & SINUS: normal facial exam and face symmetric NOSE: Normal external nose present Eye: COMMON NORMALS: Equal, round and reactive pupils present and EOMs intact bilaterally PUPIL: Yes Equal, round and reactive pupils present Neck/C-Spine: GENERAL: Yes trachea midline Chest: CHEST: Yes Symmetrical chest wall rise Resp: COMMON NORMALS: normal respiratory effort, No retractions, No use of accessory muscles and clear to auscultation bilaterally AUSCULTATION: clear to auscultation bilaterally Cardio: COMMON NORMALS: regular rate and regular rhythm RATE: regular rate RHYTHM: regular rhythm GI: COMMON NORMALS: Normal to inspection, nondistended, normoactive bowel sounds present PALPATION: Yes Tenderness to palpation present (GI) (suprapubic) : COMMON NORMALS: Yes no CVA tenderness BLADDER/KIDNEY EXAM: Yes no CVA tenderness Back/Pelvis: COMMON NORMALS: no CVA tenderness Extremity: COMMON NORMALS: no pedal edema Neuro: SANTIAGO COMA SCALE: document GCS findings [place] coma scale eye opening: Spontaneous [place] coma scale verbal response: Orientated [place] coma scale motor response: Obey commands [place] coma scale total score: 15 SENSORY EXAM: Yes extremities (intact) Psych: COMMON NORMALS: speech normal SPEECH: Yes normal speech Skin: COMMON NORMALS: no rashes or lesions noted GENERAL SKIN EXAM: no rashes or lesions noted Course Vital Signs: Vital signs: Vital Signs Temperature 97.5 F L 02/20/25 00:27 Pulse Rate 83 02/20/25 00:27 Respiratory Rate 16 02/20/25 00:27 Blood Pressure 124/65 02/20/25 00:27 Pulse Oximetry 100 02/20/25 00:27 Oxygen Delivery Me thod Room Air 02/20/25 00:27 Discharge Plan Discharge Patient Disposition: Home Condition: Stable Prescriptions: No Action No Known Home Medications Patient Instructions: Opioid Safety, Pain Management, Patient Portal & Ricardo Instructions Print Language: Tanzanian Coding Level of Care Code ED Concrete Paver for Joseph Talbert
[2025-02-20 01:18] LABS: Hematocrit 37.9 % (36-47); Hemoglobin 12.90 g/dL (11.27-16.99); Mean Corpuscular HGB Conc 34.0 g/dL (30-55); Mean Corpuscular Hemoglobin 28.8 pg (27-33); Mean Corpuscular Volume 84.6 fl (85-98); Nucleated Red Blood Cells % 0 %; Platelet Count 317 10^3/cmm (157-399); Red Blood Count 4.48 10^6/uL (3.85-5.65); White Blood Count 7.51 10^3/uL (3.29-11.43)
[2025-02-20 01:33] LABS: INR 1.03 (0.8-1.2); Prothrombin Time 14.20 SECONDS (12.1-14.9)
[2025-02-20 01:51] LABS: Alanine Aminotransferase 15 U/L (0-33); Albumin Level 4.4 g/dL (3.5-5.2); Alkaline Phosphatase 86 U/L (35-105); Anion Gap 16.8 (5-19); Aspartate Amino Transferase 14 U/L (0-32); Blood Urea Nitrogen 12 mg/dL (6-20); Calcium 9.3 mg/dL (8.5-10.5); Carbon Dioxide 20 mmol/L (22-29); Chloride 104 mmol/L (98-107); Creatinine Clr Calc Pharmacy 118.0215; Globulin 3.1 g/dL (1.3-4.6); Glucose 93 mg/dL (65-115); Lipase 18 U/L (13-60); Osmolality Calculated 283 mOsm/kg (285-295); Potassium 3.8 mmol/L (3.5-5.1); Sodium 137 mmol/L (136-145); Total Protein 7.5 g/dL (6.6-8.7)
[2025-02-20 02:00] LABS: Partial Thromboplastin Time 193.3 SECONDS (23.9-36.7)
[2025-02-20 02:14] LABS: Glucose Urine UA Negative (Normal); Nitrate Urine Negative (Negative); Specific Gravity, Urine 1.027 (1.005-1.030)
[2025-02-20 02:29] LABS: UA Manual Slide Review YES
[2025-02-20 02:31] LABS: Add Urine Microscopic? YES
--- NOTE | 2025-02-20 02:43 | ED_ITS ---
HPI - Female Genitourinary 2 General: Chief complaint: Abdominal Pain Stated complaint: abd pain r side Time Seen by Provider: 02/20/25 00:52 History of Present Illness: Patient is a 25-year-old female who presents with concern for possible miscarriage or ectopic . She reports being approximately 5 weeks based on her last menstrual period. The patient states she began experiencing vaginal bleeding approximately 2 hours prior to presentation. She describes the bleeding as brisk and has used one pad since onset. She endorses associated cramping and back pain. The patient reports having had two positive home tests and has had two blood draws at the women's clinic, with the most recent one on Friday confirming . She has an appointment scheduled with a nurse practitioner on the for follow-up care. The patient denies fever, nausea, or vomiting. Date of Last Menstrual Period: 01/15/25 Related Data Home Medications ?Medication ?Instructions ?Recorded ?Confirmed No Known Home Medications 12/04/2312/18 Allergies Allergy/AdvReac Type Severity Reaction Status Date / Time No Known Allergies Allergy Verified 02/20/25 00:32 PFSH ED 2 PFSH: Family History Grandmother Diabetes paternal Hyperlipidemia paternal Hypertension maternal and paternal Father Hypertension Denies family history of Colon cancer Ovarian cancer Clotting disorder Heart disease Breast cancer Anesthesia complication Bleeding disorder Uterine cancer Thyroid disease Stroke Social History Smoking and tobacco/nicotine status: never used tobacco/nicotine Female Reproductive History: Date of last menstrual period: 01/15/25 Physical Exam 2 Const: COMMON NORMALS: no acute distress GENERAL APPEARANCE: cooperative; not ill appearing and not frail appearing HENMT: COMMON NORMALS: normocephalic, atraumatic and Normal external nose present HEAD & SCALP: normocephalic and atraumatic FACE & SINUS: normal facial exam and face symmetric NOSE: Normal external nose present Eye: COMMON NORMALS: Equal, round and reactive pupils present and EOMs intact bilaterally PUPIL: Yes Equal, round and reactive pupils present Neck/C-Spine: GENERAL: Yes trachea midline Chest: CHEST: Yes Symmetrical chest wall rise Resp: COMMON NORMALS: normal respiratory effort, No retractions, No use of accessory muscles and clear to auscultation bilaterally AUSCULTATION: clear to auscultation bilaterally Cardio: COMMON NORMALS: regular rate and regular rhythm RATE: regular rate RHYTHM: regular rhythm GI: COMMON NORMALS: Normal to inspection, nondistended, normoactive bowel sounds present OTHER: Suprapubic tenderness Extremity: COMMON NORMALS: no pedal edema Neuro: TAMARA COMA SCALE: document GCS findings [place] coma scale eye opening: Spontaneous [place] coma scale verbal response: Orientated [place] coma scale motor response: Obey commands [place] coma scale total score: 15 S ENSORY EXAM: Yes extremities (intact) Psych: COMMON NORMALS: speech normal SPEECH: Yes normal speech Skin: COMMON NORMALS: no rashes or lesions noted GENERAL SKIN EXAM: no rashes or lesions noted Course 2 Vital Signs: Vital signs: Vital Signs Temperature 97.5 F L 02/20/25 00:27 Pulse Rate 79 02/20/25 03:06 Respiratory Rate 16 02/20/25 03:06 Blood Pressure 108/61 02/20/25 03:06 Pulse Oximetry 100 02/20/25 03:06 Oxygen Delivery Me thod Room Air 02/20/25 00:27 MDM - Female Medical Decision Making Hemoglobin is 11. Vitals are normal. Platelet count 317. PTT is erroneously high, likely l error due to accessing port that is heparinized. No UTI. CRP is 3. Pelvic ultrasound shows an intrauterine mass, appearing is a gestational sac measuring 4 weeks plus. Quantitative hCG is 1900, which is double a couple of days ago appropriately. This is reassuring. No pelvic free fluid. Blood flow to both ovaries by ultrasound. Pelvic rest. Discharge. Monitor bleeding. Return for continued bleeding or worsening symptoms otherwise. Lab Data 02/20/25 01:08 02/20/25 01:08 Laboratory Results WBC 7.51 10^3/uL (3.29-11.43) 02/20/25 01:08 RBC 4.48 10^6/uL (3.85-5.65) 02/20/25 01:08 Hgb 12.90 g/dL (11.27-16.99) 02/20/25 01:08 Hct 37.9 % (36-47) 02/20/25 01:08 MCV 84.6 fl (85-98) L 02/20/25 01:08 MCH 28.8 pg (27-33) 02/20/25 01:08 MCHC 34.0 g/dL (30-55) 02/20/25 01:08 RDW 12.7 % (12.1-15.1) 02/20/25 01:08 Plt Count 317 10^3/cmm (157-399) 02/20/25 01:08 MPV 9.3 fL (7.4-10.4) 02/20/25 01:08 Neut % (Auto) 65.3 % 02/20/25 01:08 Lymph % (Auto) 26.8 % 02/20/25 01:08 [place] % (Auto) 5.3 % 02/20/25 01:08 Eos % (Auto) 1.6 % 02/20/25 01:08 Baso % (Auto) 0.9 % 02/20/25 01:08 Neut # (Auto) 4.90 10^3/uL (1.8-7.7) 02/20/25 01:08 Lymph # (Auto) 2.0 10^3/uL (0.8-4.8) 02/20/25 01:08 [place] # (Auto) 0.4 10^3/uL (0.2-0.9) 02/20/25 01:08 Eos # (Auto) 0.1 10^3/uL (0.0-0.8) 02/20/25 01:08 Baso # (Auto) 0.1 10^3/uL (0.0-0.1) 02/20/25 01:08 Nucleated RBC % (auto) 0 % 02/20/25 01:08 Nucleated RBCs # 0.0 /100WBC 02/20/25 01:08 PT 14.20 SECONDS (12.1-14.9) 02/20/25 01:08 INR 1.03 (0.8-1.2) 02/20/25 01:08 APTT 193.3 SECONDS (23.9-36.7) H* 02/20/25 01:08 Sodium 137 mmol/L (136-145) 02/20/25 01:08 Potassium 3.8 mmol/L (3.5-5.1) 02/20/25 01:08 Chloride 104 mmol/L (98-107) 02/20/25 01:08 Carbon Dioxide 20 mmol/L (22-29) L 02/20/25 01:08 Anion Gap 16.8 (5-19) 02/20/25 01:08 BUN 12 mg/dL (6-20) 02/20/25 01:08 Creatinine 0.5 mg/dL (0.5-0.9) 02/20/25 01:08 GFR Calculation 151.6 mL/min (90-130) H 02/20/25 01:08 Glucose 93 mg/dL (65-115) 02/20/25 01:08 Calculated Osmolality 283 mOsm/kg (285-295) L 02/20/25 01:08 Calcium 9.3 mg/dL (8.5-10.5) 02/20/25 01:08 Total Bilirubin 0.4 mg/dL (0.15-1.2) 02/20/25 01:08 AST 14 U/L (0-32) 02/20/25 01:08 ALT 15 U/L (0-33) 02/20/25 01:08 Alkaline Phosphatase 86 U/L (35-105) 02/20/25 01:08 C-Reactive Protein 3.0 mg/L (0.0-4.9) 02/20/25 01:08 Total Protein 7.5 g/dL (6.6-8.7) 02/20/25 01:08 Albumin 4.4 g/dL (3.5-5.2) 02/20/25 01:08 Globulin 3.1 g/dL (1.3-4.6) 02/20/25 01:08 Lipase 18 U/L (13-60) 02/20/25 01:08 Ser , Semi-Qnt 1923.00 mIU/mL 02/20/25 01:08 Urine Color Dark yellow (Yellow) A 02/20/25 01:26 Urine Appearance Clear (CLEAR) 02/20/25 01:26 Urine pH 5.5 (5-7) 02/20/25:26 Ur Specific [place] 1.027 (1.005-1.030) 02/20/25 01:26 Urine Protein Negative (Negative) 02/20/25 01:26 Urine Glucose (UA) Negative (Normal) 02/20/25: Urine Ketones Trace (Negative) 02/20/25 01:26 Urine Blood Negative (Negative) 02/20/25 01:26 Urine Nitrate Negative (Negative) 02/20/25 01:26 Urine Bilirubin Negative (Negative) 02/20/25 01:26 Urine Urobilinogen 0.2 mg/dL (Negative) 02/20/25 01:26 Ur Leukocyte Esterase Negative (Negative) 02/20/25 01:26 Urine RBC 0-2 /hpf (0-2) 02/20/25 01:26 Urine WBC 0-4 /hpf (0-5) H 02/20/25 01:26 Ur Squamous Epith Cells 3-5 /hpf (0-5) 02/20/25 01:26 Amorphous Sediment Not Reportable 02/20/25 01:26 Urine Bacteria Trace /hpf (NONE) 02/20/25 01: Urine Mucus 2+ /hpf 02/20/25 01:26 All radiology interpretation(s) finalized by discharge Discharge Plan Discharge Patient Disposition: Home Clinical Impression: , threatened Condition: Stable Prescriptions: No Action No Known Home Medications Discharge Orders: Discharge ED (Routine); Ordered 02/20/25 Ordered By: Mark Galvez Patient Instructions: Threatened Miscarriage (ED), Opioid Safety, Pain Management, Patient Portal & Ricardo Instructions Activity Restrictions/Additional Instructions: Pelvic rest meaning, limit lifting to 10 pounds, limit bending and stooping and stairs, and no sexual intercourse until cleared by your doctor. Return for brisk vaginal bleeding, soaking 1 pad per hour for more than 3 hours straight, feeling faint, passing out, etc. Call the women's health clinic on Friday, let them know you were here with vaginal bleeding in early . You will need another blood test at some point this coming week to ensure it continues to increase appropriately. Print Language: Italian Coding Level of Care Code ED Trimmer Machine Operator for Joseph Talbert
[2025-02-20 03:06] VITALS: BP 108/61; PULSE 79; RESP 16; O2SAT 100
== END 2025-02-20 03:07 | disposition home or self-care (01) ==
PROVIDERS: Emergency Provider Emergency Medicine
DX: O20.0 Threatened abortion (principal); Z3A.01 Less than 8 weeks gestation of pregnancy
CPT/HCPCS: 76817; 80053; 81001; 83690; 84702; 85025; 85610; 85730; 86140; 96374; 99285; J1642

== ENCOUNTER → 2025-02-21 10:40 | Outpatient (BNVA) | payer BC, MEDICAID, SELFPAY | PROVIDERS: Visit Provider Nurse Practitioner Women's Health | DX: O20.9 Hemorrhage in early pregnancy, unspecified (principal) | CPT/HCPCS: 84702 ==

== ENCOUNTER 2025-03-02 16:02 | Outpatient (CLI) | payer BC, MEDICAID, SELFPAY ==
--- NOTE | 2025-03-02 16:45 | US_ITS ---
WS: [id number] EARLY OBSTETRICAL ULTRASOUND (<14 WEEKS). HISTORY: O20.0 - Threatened COMPARISON: 02/20/2025 Normal size anteverted uterus. Intrauterine gestational sac is identified. Mean sac diameter of 2.2 cm corresponds to a gestation of 7 weeks and 1 day. Intrauterine yolk sac is identified. There is no pole or cardiac activity identified. No subchorionic hemorrhage. RIGHT ovary measures 1.9 x 1.6 x 1.7 cm. Normal vascularity. LEFT ovary measures 2.5 x 1.2 x 1.9 cm. Normal vascularity. Fluid-filled bowel loops within the adnexa neither ovary is well visualized. Urinary bladder continues to be distended on transvaginal imaging. US/US OB <=14 wk fetus w transvag IMPRESSION: 1. Intrauterine gestational sac with yolk sac identified. Mean sac diameter co nsistent with an age of 7 weeks and 1 day with an EDC of 10/18/2025. No crown-rum p length or pole identified. This may represent a very early intrauterine gestation. Consider 1 week transvaginal obstetrical ultrasound follow-up. With a mean sac diameter of 2.2 cm cannot be definitive for failure. 1 we ek transvaginal pelvic ultrasound follow-up should clarify developing intrauter ine gestation. 2. Compared to the prior transvaginal obstetrical ultrasound of 02/20/2025 ther e has been appropriate interval growth of the sac. 3. No free fluid.
== END 2025-03-02 16:03 | disposition home or self-care (01) ==
LOC: RAD 16:03
PROVIDERS: PCP Registered Nurse; Visit Provider Nurse Practitioner Women's Health
DX: O20.0 Threatened abortion (principal); Z87.59 Personal history of other complications of pregnancy, childbirth and the puerperium
CPT/HCPCS: 76801; 76817

== ENCOUNTER → 2025-03-03 10:32 | Outpatient (BNVA) | payer BC, MEDICAID, SELFPAY | PROVIDERS: Visit Provider Nurse Practitioner Women's Health | DX: Z34.90 Encounter for supervision of normal pregnancy, unspecified, unspecified trimester (principal) | CPT/HCPCS: 84315; 84702; 86850; 86900 ==

== ENCOUNTER → 2025-04-06 14:26 | Outpatient (BNVA) | payer BC, MEDICAID, SELFPAY | PROVIDERS: Visit Provider Nurse Practitioner Women's Health | DX: Z34.90 Encounter for supervision of normal pregnancy, unspecified, unspecified trimester (principal); Z87.59 Personal history of other complications of pregnancy, childbirth and the puerperium | CPT/HCPCS: 80307; 84315; 85025; 86592; 86762; 86803; 86850; 86900; 87086; 87340; 87491; 87591; 87661; 87806 ==

== ENCOUNTER → 2025-04-11 10:45 | Outpatient (BNVA) | payer BC, MEDICAID, SELFPAY | PROVIDERS: Visit Provider Obstetrics & Gynecology | DX: Z34.90 Encounter for supervision of normal pregnancy, unspecified, unspecified trimester (principal) | CPT/HCPCS: 84315; 88175 ==

== ENCOUNTER 2025-05-16 10:31 | Outpatient (CLI) | payer BC, MEDICAID, SELFPAY ==
[2025-05-16 11:41] LABS: Thyroid Stimulating Hormone 1.13 uIU/mL (0.27-4.20)
== END 2025-05-16 10:32 | disposition home or self-care (01) ==
PROVIDERS: PCP Registered Nurse; Visit Provider Obstetrics & Gynecology
DX: Z87.59 Personal history of other complications of pregnancy, childbirth and the puerperium (principal); N96 Recurrent pregnancy loss
CPT/HCPCS: 36415; 84315; 84443; 85613; 85730; 86146; 86147